=== PATIENT | female | born 1970 | race Caucasian/White ===

== ENCOUNTER 2023-10-23 19:20 | Emergency (ER) | payer SELFPAY ==
[2023-10-23 19:23] VITALS: BP 152/101; PULSE 79; RESP 18; TEMP 36.6; O2SAT 99; BMI 30.9
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
[2023-10-23 20:01] LABS: Absolute Lymphocyte Count 1.96 X10^3/uL (0.83-4.51); Absolute Neutrophil Count 6.8 X10^3/uL (2.0-7.7); Basophil# 0.05 X10^3/uL; Basophil% 0.5 % (0-1); Eosinophil# 0.06 X10^3/uL; Eosinophils% 0.6 % (0-5); Hematocrit 40.9 % (37-47); Hemoglobin 14.2 g/dL (12.0-15.0); Lymphocyte # 1.96 X10^3/ul (0.83-4.51); Lymphocyte % 20.5 % (19-41); Mean Corp Hgb Conc 34.7 g/dL (32-36); Mean Corpuscular Hgb 32.6 pg (27.0-32.0); Mean Platelet Vol. 9.2 fl (6.2-12.0); Monocyte# 0.67 X10^3/uL; NRBC Flagged by Analyzer 0 % (0-5); Neutrophil # 6.78 X10^3/uL (2.7-7.7); Neutrophil % 71.1 % (47-70); Platelet Count 254 K/mm3 (150-450); RBC Distribution Width CV 12.3 % (11.6-14.6); RBC Distribution Width SD 42.6 fl (35.1-43.9); Red Blood Count 4.35 M/mm3 (4.2-5.4); White Blood Count 9.6 K/mm3 (4.4-11.0)
[2023-10-23 20:31] LABS: Anion Gap 5 (5-15); BUN 15 mg/dL (7-18); BUN/Creat Ratio 15.7 RATIO (10-20); Calcium,Total 9.1 mg/dL (8.5-10.1); Chloride 108 mmol/L (98-107); Creatinine, Serum 0.95 mg/dL (0.55-1.02); EST Glomerular Filtration Rate 65 mL/min (>60); Est Glom Filt Rate - Afr Amer 79 mL/min (>60); Estimated Creatinine Clearance 59.14 ml/min; Glucose 171 mg/dL (74-106); Potassium 3.7 mmol/L (3.5-5.1); Sodium Level 140 mmol/L (136-145)
[2023-10-23 20:36] LABS: International Normalized Ratio 0.9; Prothrombin Time (Protime)PT. 12.2 SECONDS (11.7-14.9)
[2023-10-23 20:37] LABS: Partial Thromboplast Time 26.4 Seconds (24.1-36.2)
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
[2023-10-23] MEDS: 0.9% Normal Saline (500mL Bag) 500 ML 999 ML IV (21:02)
[2023-10-23] MEDS: fentaNYL 100 MCG/2 ML Ampul 25 MCG IV (21:03)
[2023-10-23 21:08] VITALS: BP 162/75
== END 2023-10-23 22:43 | disposition home or self-care (01) ==
PROVIDERS: Emergency Provider Emergency Medicine; Visit Provider Emergency Medicine
DX: S30.1XXA Contusion of abdominal wall, initial encounter (principal); S22.20XA Unspecified fracture of sternum, initial encounter for closed fracture; V49.50XA Passenger injured in collision with unspecified motor vehicles in traffic accident, initial encounter
CPT/HCPCS: 71260; 74177; 80048; 85025; 85610; 85730; 93005; 96374; 99283; J7030; J7040; Q9967; A4216